=== PATIENT | male | born 1975 | race Caucasian/White ===

== ENCOUNTER 2017-05-29 10:53 | Emergency (ER) | payer OTHER ==
--- NOTE | 2017-05-29 11:28 | EDPHY ---
H & P Time Seen by Provider: 05/29/17 11:08 HPI/ROS: CHIEF COMPLAINT: Right knee pain HISTORY OF PRESENT ILLNESS: The patient is a 41-year-old male with previous knee surgery who presents emergency department after injuring his knee 3 weeks ago. The patient was snowboarding when he fell. He subsequently followed up with Dr. Madrid and had an MRI last Wednesday. He has not had the official reading yet. 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 She states that his ligaments were intact. The after the injury the patient took a trip to [place]. He states while in [place] his knee swelled significantly. He has no calf pain or ankle swelling. He denies any chest pain or shortness of breath. He comes in the emergency department today because he was walking and developed increased pain and diaphoresis. He has had no recent fever or chills other than the diaphoresis mentioned above. He has no redness surrounding his knee. No recent illnesses. REVIEW OF SYSTEMS: My complete review of systems is negative except as mentioned in the HPI. Past Medical/Surgical History: Includes previous knee surgery Social history: Patient does not smoke Smoking Status: Never smoked Physical Exam: 37.4, 148/77, 118, 16, 95% on room air GENERAL: Well-appearing, in no acute distress, alert. HEENT: Eyes normal to inspection, normal pharynx, no signs of dehydration. NECK: [No thyromegaly, no lymphadenopathy, supple. RESPIRATORY: Clear to auscultation bilaterally, no rales, rhonchi or wheezing. CVS: Regular rate and rhythm, no rubs, murmurs, or gallops. ABDOMEN: Soft, nontender, nondistended, no organomegaly. BACK: Normal to inspection, no CVA tenderness. SKIN: Normal color, no rash, warm, dry. No pallor. EXTREMITIES: The patient's right knee is swollen. There is no surrounding warmth or erythema. No streaking up the leg. No patellar tenderness. His ligaments are stable. There is a strong palpable popliteal and DP pulse. Brisk capillary refill. No pedal edema, no calf tenderness, no Homans sign or cords. NEURO/PSYCH: Alert and oriented x3, normal mood and affect, normal motor sensory exam. Constitutional: Initial Vital Signs Temperature (C) 37.4 C 05/29/17 10:56 Heart Rate 118 H 05/29/17 10:56 Respiratory Rate 16 05/29/17 10:56 Blood Pressure 148/77 H 05/29/17 10:56 O2 Sat (%) 95 05/29/17 10:56 O2 Delivery Mode Room Air Allergies/Adverse Reactions: No Known Allergies Allergy (Unverified 05/29/17 10:56) Home Medications: Medication Instructions Recorded NK [No Known Home Meds] 05/29/17 Medical Decision Making ED Course/Re-evaluation: In the emergency department I discussed possible etiologies with the patient. I answered all his questions. IV was placed. Laboratory studies including blood cultures were obtained due to the episode of diaphoresis. Patient states he has an x-ray of his right knee which was read as normal. His will bring this to the Emergency Department story does not need reimaging. X-ray was performed after his knee was swollen. I added an ultrasound of his right lower extremity due to his travel to [place]. The reviewed the patient's laboratory studies. White count was normal. His CRP was 13. ESR was 7. Rest of chemistry panel was unremarkable. Cultures are pending. Ultrasound of right lower extremity. No local DVT noted. Please refer to the dictated report. I discussed the results with the patient. Patient was placed in a knee immobilizer. He is given crutches. He will follow up with Dr. Madrid. He is given warnings prior to leaving. He will return with worsening symptoms. Differential Diagnosis: My differential includes but is not limited to internal derangement of the knee , knee sprain, ligamentous injury, DVT, septic joint, bacteremia - Data Points Laboratory Results: Laboratory Results 05/29/17 11:58 05/29/17 11:58 05/29/17 05/29/17 05/29/17 Unknown 12:16 11:58 WBC RBC Hgb Hct MCV MCH MCHC RDW Plt Count MPV Neut % (Auto) Lymph % (Auto) Riley % (Auto) Eos % (Auto) Baso % (Auto) Nucleat RBC Rel Count Absolute Neuts (auto) Absolute Lymphs (auto) Absolute Monos (auto) Absolute Eos (auto) Absolute Basos (auto) Absolute Nucleated RBC Immature Gran % Immature Gran # ESR VBG Lactic Acid Sodium 139 mEq/L mEq/L (135-145) Potassium 4.6 mEq/L mEq/L (3.5-5.2) Chloride 103 mEq/L mEq/L (97-110) Carbon Dioxide 25 mEq/l mEq/l (22-31) Anion Gap 11 mEq/L mEq/L (8-16) BUN 16 mg/dL mg/dL (7-23) Creatinine 1.0 mg/dL mg/dL (0.7-1.3) Estimated GFR > 60 Glucose 89 mg/dL mg/dL (70-100) Calcium 8.7 mg/dL mg/dL (8.5-10.4) C-Reactive Protein 13.2 mg/L H mg/L (<10.0) Group A Strep Screen NEGATIVE (NEGATIVE) Group A Strep DNA Pending 05/29/17 05/29/17 11:58 11:58 WBC 7.71 10^3/uL 10^3/uL (3.80-9.50) RBC 4.87 10^6/uL 10^6/uL (4.40-6.38) Hgb 15.0 g/dL g/dL (13.7-17.5) Hct 42.5 % % (40.0-51.0) MCV 87.3 fL fL (81.5-99.8) MCH 30.8 pg pg (27.9-34.1) MCHC 35.3 g/dL g/dL (32.4-36.7) RDW 11.9 % % (11.5-15.2) Plt Count 176 10^3/uL 10^3/uL (150-400) MPV 10.2 fL fL (8.7-11.7) Neut % (Auto) 82.0 % H % (39.3-74.2) Lymph % (Auto) 4.0 % L % (15.0-45.0) Riley % (Auto) 12.3 % % (4.5-13.0) Eos % (Auto) 0.8 % % (0.6-7.6) Baso % (Auto) 0.5 % % (0.3-1.7) Nucleat RBC Rel Count 0.0 % % (0.0-0.2) Absolute Neuts (auto) 6.32 10^3/uL 10^3/uL (1.70-6.50) Absolute Lymphs (auto) 0.31 10^3/uL L 10^3/uL (1.00-3.00) Absolute Monos (auto) 0.95 10^3/uL H 10^3/uL (0.30-0.80) Absolute Eos (auto) 0.06 10^3/uL 10^3/uL (0.03-0.40) Absolute Basos (auto) 0.04 10^3/uL 10^3/uL (0.02-0.10) Absolute Nucleated RBC 0.00 10^3/uL 10^3/uL (0-0.01) Immature Gran % 0.4 % % (0.0-1.1) Immature Gran # 0.03 10^3/uL 10^3/uL (0.00-0.10) ESR 7 MM/HR MM/HR (0-15) VBG Lactic Acid 1.7 mmol/L mmol/L (0.7-2.1) Sodium Potassium Chloride Carbon Dioxide Anion Gap BUN Creatinine Estimated GFR Glucose Calcium C-Reactive Protein Group A Strep Screen Group A Strep DNA Departure - Departure Disposition: Home, Routine, Self-Care Clinical Impression: Right knee pain Qualifiers: Chronicity: acute Qualified Code(s): M25.561 - Pain in right knee Condition: Good Instructions: Knee Pain (ED) Additional Instructions: Follow up with Dr. Madrid. Ultrasound did not show any clot in your leg. Blood cultures are pending. Referrals: Tong Madrid MD [Medical Doctor] - 2-3 days without fail
[2017-05-29 12:10] LABS: PLATELET COUNT 176 10^3/uL (150-400)
[2017-05-29 13:13] VITALS: BP 126/73
== END 2017-05-29 13:13 | disposition home or self-care (01) ==
DX: M25.561 Pain in right knee (principal)
CPT/HCPCS: L1830